=== PATIENT | female | born 1995 | race Caucasian/White ===

== ENCOUNTER 2017-04-05 18:17 | Emergency (ER) | payer MEDICAID, OTHER ==
[~2017-04-05] VITALS: Ht 167.6 cm; Wt 130.4 kg
[~2017-04-05 18:17] MED LIST: ACET-2863 PO; ALBU0.0971 IH; DOCU-299 PO; ROBDM PO
[2017-04-05 18:53] VITALS: BP 121/59
--- NOTE | 2017-04-05 19:35 | NUR ---
AMBULATED TO ER BED 12
--- NOTE | 2017-04-05 19:45 | NUR ---
21/F CAME IN W C/O 11/20 MIDEPIGASTRIC PAIN, SHARP, SUDDEN ONSET X TODAY. REPORTS NAUSEA, DENIES VOMITING/DIARRHEA. BS ACTIVE X4, ABD SOFT, ROUND, +TENDERNESS DIFFUSED. DENIES SOB/CP, FEVER/CHILLS, HEMATURIA/DYSURIA. REPORTS SPOTTING X 3 WEEKS. PMH: CHOLECYSTECTOMY
[2017-04-05 20:16] LABS: BILIRUBIN,URINE NEGATIVE (NEGATIVE); BLOOD, URINE 3+ (NEGATIVE); COLOR,URINE YELLOW (YELLOW); LEUKOCYTE ESTERASE ,URINE NEGATIVE (NEGATIVE); NITRITE, URINE NEGATIVE (NEGATIVE); UGLUCOSE NEGATIVE (NEGATIVE)
[2017-04-05 20:19] LABS: APPEARANCE,URINE CLEAR (CLEAR)
[2017-04-05 20:39] LABS: RBC,URINE 0-5 (RARE) /HPF (0-5); WBC,URINE 0-5 (RARE) /HPF (0-5)
[2017-04-05 20:47] LABS: EOSINOPHILS # (AUTO) 0.1 K/uL (0-0.4); MONOCYTES # (AUTO) 0.4 K/uL (0.8-1.0)
[2017-04-05 20:51] LABS: BASOPHILS # (AUTO) 0.1 K/uL (0.00-0.22); BASOPHILS % (AUTO) 0.9 % (0.0-2.0); EOSINOPHILS % (AUTO) 0.8 % (0.0-4.0); HEMATOCRIT 39.7 % (36-48); HEMOGLOBIN 13.4 g/dL (12.0-16.0); LYMPHOCYTES # (AUTO) 2.4 K/uL (2.5-16.5); LYMPHOCYTES % (AUTO) 25.9 % (20.5-51.1); MEAN CORPUSCULAR HEMOGLOBIN 27 pg (27-31); MEAN CORPUSCULAR HGB CONC 34 g/dL (33-37); MEAN CORPUSCULAR VOLUME 80 fL (80-94); MONOCYTES % (AUTO) 4.7 % (1.7-9.3); NEUTROPHILS # (AUTO) 6.4 K/uL (1.8-7.7); NEUTROPHILS % (AUTO) 67.7 % (42.2-75.2); PLATELET COUNT (AUTO) 269 K/uL (140-450); RED BLOOD CELL COUNT(AUTO) 4.96 MIL/uL (4.20-5.40); RED CELL DISTRIBUTION WIDTH 13.9 % (11.6-13.7); WHITE BLOOD COUNT (AUTO) 9.4 K/uL (4.8-10.8)
[2017-04-05 20:55] LABS: ANION GAP 14.7 (8-16); CARBON DIOXIDE 27.2 mmol/L (21-32); POTASSIUM 3.9 mmol/L (3.5-5.1)
[2017-04-05 21:01] LABS: ALBUMIN 3.7 g/dL (3.4-5.0); TOTAL BILIRUBIN 0.4 mg/dL (0.0-1.0)
--- NOTE | 2017-04-05 23:22 | NUR ---
Patient discharged with v/s stable. Written and verbal after care instructions given and explained. Patient alert, oriented and verbalized understanding of instructions. Ambulatory with steady gait. All questions addressed prior to discharge. ID band removed. Patient advised to follow up with PMD. Rx of PRILOSEC given. Patient educated on indication of medication including possible reaction and side effects. Opportunity to ask questions provided and answered.
[2017-04-05 23:28] VITALS: BP 133/72
== END 2017-04-05 23:22 | disposition home or self-care (01) ==
LOC: MED 18:17
DX: K21.9 Gastro-esophageal reflux disease without esophagitis (principal); D36.7 Benign neoplasm of other specified sites; N93.9 Abnormal uterine and vaginal bleeding, unspecified; J45.909 Unspecified asthma, uncomplicated; Z90.49 Acquired absence of other specified parts of digestive tract
CPT/HCPCS: 36415; 74176; 76536; 80053; 81001; 81025; 83690; 85025; 87086; 99285; Q0092

== ENCOUNTER 2019-04-21 14:09 | Emergency (ER) | payer SELFPAY ==
[~2019-04-21] VITALS: Ht 167.6 cm; Wt 131.5 kg
[~2019-04-21 14:09] MED LIST changes: -ACET-2863 PO; +HYDR-5123 PO
[2019-04-21 14:50] VITALS: BP 148/74
--- NOTE | 2019-04-21 14:58 | NUR ---
TO LOBBY. AWAITING BED IN ED.
--- NOTE | 2019-04-21 16:12 | NUR ---
PATIENT AMBULATED WITH STEADY GAIT TO BED 4.
--- NOTE | 2019-04-21 16:19 | NUR ---
C/O INTERMITTENT FEVER, PRODUCTIVE COUGH, NASAL CONGESTION, HEADACHE X 1 WEEK. BILATERAL EAR PAIN, 9/10 AT THIS TIME. ORAL TEMP 97.9, HR 129 AT THIS TIME. +NAUSEA NOW, 1X VOMIT LAST NIGHT. 99% RA. TACHYCARDIC WITH REGULA RHYTHM. MED HX: DENIES
[2019-04-21 17:00] VITALS: BP 105/56
--- NOTE | 2019-04-21 17:00 | NUR ---
Patient discharged with v/s stable. Written and verbal after care instructions given and explained. Patient alert, oriented and verbalized understanding of instructions. Ambulatory with steady gait. All questions addressed prior to discharge. ID band removed. Patient advised to follow up with PMD. Rx of MOTRIN, PROMETHAZINE DM, AND AMOXICILLIN given. Patient educated on indication of medication including possible reaction and side effects. Opportunity to ask questions provided and answered.
== END 2019-04-21 17:00 | disposition home or self-care (01) ==
LOC: MED 14:09
DX: H66.91 Otitis media, unspecified, right ear (principal); J02.9 Acute pharyngitis, unspecified; J45.909 Unspecified asthma, uncomplicated; Z79.899 Other long term (current) drug therapy
CPT/HCPCS: 99283